=== PATIENT | female | born 1990 | race Caucasian/White ===

== ENCOUNTER 2017-07-05 06:05 | Day surgery (SDC) | payer OTHER ==
[~2017-07-05] VITALS: Ht 172.7 cm; Wt 67.8 kg
[2017-07-05 06:38] VITALS: Ht 172.7 cm; Wt 67.8 kg
[2017-07-05 06:44] VITALS: BP 121/68; PULSE 73; RESP 16
[2017-07-05] MEDS ORDERED: SERT25TA PO (06:53)
[2017-07-05] MEDS ORDERED: CLON-412 PO (06:53)
[2017-07-05] MEDS ORDERED: CLON-429 PO (06:53)
[2017-07-05] MEDS ORDERED: MIDAZOLAM 1 MG/ML 2 ML INJ ONE ×2 (07:38)
[2017-07-05] MEDS ORDERED: FENTAnyl 50 MCG/ML VIAL ONE (07:38)
--- NOTE | 2017-07-05 07:50 | OPPN ---
Date/Time of Note Date/Time of Note DATE: 07/05/17 TIME: 07:44 Operative Report Preoperative Diagnosis chronic heartburn Postoperative Diagnosis hiatal hernia GERD gastritis Operation/Procedure Performed egd with biopsy Provider: VERNA HARRIS MD Anesthesia Type: moderate sedation Estimated blood loss: none Transfusion Required: no Specimens gastric biopsy Grafts/Implants: none Complications: no VERNA HARRIS MD Jul 05, 2017 07:50
[2017-07-05 08:01] VITALS: BP 99/42; PULSE 63; RESP 14
--- NOTE | 2017-07-05 08:22 | GILP ---
DATE OF PROCEDURE: 07/05/2017 PROCEDURE PERFORMED: Esophagogastroduodenoscopy and biopsy. PREOPERATIVE DIAGNOSIS: Chronic heartburn. POSTOPERATIVE DIAGNOSES: 1. Hiatal hernia. 2. Gastroesophageal reflux disease. 3. Gastritis with erosions. 4. Gastric mucosal biopsies were taken for Helicobacter pylori test. INDICATION: Pamela العراقي is a 26-year-old female patient who had chronic heartburn not responding to therapy. The patient was scheduled for endoscopy examination for further evaluation. The procedure and possible complications were well explained to the patient. The patient understood and consented to the procedure. DESCRIPTION OF PROCEDURE: Under the influence of fentanyl and Versed, the gastroscope was carefully introduced into the esophagus. Under direct vision, it was advanced to the stomach, into the pylorus, into the duodenal bulb, and descending duodenum. FINDINGS: Esophagus: The patient had a hiatal hernia and gastroesophageal reflux disease. Stomach: She had gastritis with erosions. Gastric mucosal biopsies were taken for Helicobacter pylori test. Duodenum was normal. The patient tolerated the procedure very well. There was no complication from the procedure. At the end of procedure, she was awake with stable vital signs and she was discharged home in care of her family. IMPRESSION: Please see postop diagnoses. PLAN: 1. Pantoprazole 40 mg p.o. q.a.m. 2. Await Helicobacter pylori test report. Dictated By: MD MINH Garcia/sakina/shani /Document#: [id number]
== END 2017-07-05 13:26 | disposition home or self-care (01) ==
LOC: GIL 06:05
PROVIDERS: ATTEND Internal Medicine Gastroenterology
DX: K44.9 Diaphragmatic hernia without obstruction or gangrene (principal); K21.9 Gastro-esophageal reflux disease without esophagitis; K29.60 Other gastritis without bleeding
CPT/HCPCS: 43239; 84703; 87081; J2250; J3010; Z7610